=== PATIENT | female | born 1960 | race Caucasian/White ===

== ENCOUNTER 2016-12-20 09:51 | Inpatient (IN) | payer OTHER ==
[2016-12-20] VITALS (14 sets, daily range): BP systolic 127–180; BP diastolic 68–112
[~2016-12-20] VITALS: Ht 165.1 cm; Wt 63.4 kg
[2016-12-20 10:45] LABS: BASOPHIL COUNT 0.1 K/uL (0-0.1); EOSINOPHIL (%) 2.8 % (0-5); EOSINOPHIL COUNT 0.6 K/uL (0-0.3); HEMATOCRIT 43.5 % (36.0-46.0); IMMATURE GRANULOCYTE (%) 0.7 % (0.0-0.7); IMMATURE GRANULOCYTE COUNT 0.1 K/uL; INSTRUMENT ABS NEUTROPHIL CT 13.8 K/uL; MCV 88.1 FL (83-99); MEAN PLAT.VOLUME 10.6 uM^3 (9.5-12.4); MONOCYTE (%) 3.5 % (3-12); MONOCYTE COUNT 0.7 K/uL (0-0.8); NEUTROPHIL (%) 71.4 % (45-76); NEUTROPHIL COUNT 13.8 K/uL (1.8-6.4); PLATELET COUNT 212 K/uL (156-360); RBC DIS.WIDTH-CV 12.7 % (11.8-14.6); RBC DIS.WIDTH-SD 41.1 % (39-53); RED BLOOD COUNT 4.94 M/uL (3.80-5.20); WHITE BLOOD COUNT 19.3 K/uL (4.1-10.2)
[2016-12-20 10:52] LABS: AMYLASE 64 IU/L (1-118); INTER. NORMALIZED RATIO 0.9; PROTHROMBIN TIME 10.2 SEC (10.2-12.9)
[2016-12-20 10:53] LABS: CHLORIDE 104 mEq/L (99-109); POTASSIUM 2.7 mEq/L (3.7-5.4); SODIUM 140 mEq/L (136-147)
[2016-12-20 10:54] LABS: GLUCOSE 189 mg/dL (70-99)
[2016-12-20 10:55] LABS: PTT 26.2 SEC (25-37)
[2016-12-20 10:56] LABS: ANION GAP 10 MEQ/L (2-14)
[2016-12-20 10:57] LABS: SERUM ETHYL ALCOHOL < 10 mg/dL
[2016-12-20 10:58] LABS: GFR ESTIMATE (CALCULATED) > 59 mL/min/
[2016-12-20 10:59] LABS: UREA NITROGEN (BUN) 15 mg/dL (9-23)
[2016-12-20 11:01] LABS: LIPASE 17 U/L (1.0-51.0)
[2016-12-20 11:04] LABS: TROP-I INTERPRETATION NEGATIVE; TROPONIN-I 0.17 ng/mL (0.0-0.30)
[2016-12-20 11:07] LABS: QUANTITATIVE HCG 9.8 MIU/ML
[2016-12-20 11:39] LABS: ADD MIUA? YES; BILIRUBIN NEGATIVE; BLOOD LARGE; COLOR STRAW ((YELLOW)); GLUCOSE (STRIP) 150; KETONES 5; LEUKOCYTES NEGATIVE; NITRITE NEGATIVE; PROTEIN (STRIP) 100; UROBILINOGEN 0.2 MG/DL (0.2-1.0)
[2016-12-20 12:06] LABS: AMPHETAMINE NEGATIVE (500 ng/mL); BARBITURATES NEGATIVE (200 ng/mL); BENZODIAZEPINES NEGATIVE (150 ng/mL); COCAINE NEGATIVE (150 ng/mL); INTERNAL CONTROLS VALID? YES; METHADONE PRESUMPTIVE POSITIVE (200 ng/mL); METHAMPHETAMINE NEGATIVE (500 ng/mL); OPIATES (MORPHINE) NEGATIVE (100 ng/mL); OXYCODONE NEGATIVE (100 ng/mL); PHENCYCLIDINE NEGATIVE (25 ng/mL); PROPOXYPHENE NEGATIVE (300 ng/mL); THC CANNABINOIDS NEGATIVE (50 ng/mL); TRICYCLIC ANTIDEPRESSANTS NEGATIVE (300 ng/mL)
[2016-12-20 12:22] LABS: BACTERIA NONE SEEN /HPF; EPITHELIAL CELLS NONE SEEN /HPF; MUCUS TRACE /LPF; RED BLOOD CELLS TNTC /HPF (0-5); UCUL ADDED? YES; WHITE BLOOD CELLS NONE SEEN /HPF (0-5)
[2016-12-20 16:04] LABS: BASE EXCESS 0.2 mEq/L (-3 to +3); BICARBONATE 23.6 mEq/L (22-26); METHEMOGLOBIN 1.7 % (0-1.5); PCO2 34 mm Hg (35-45); PO2 412 mm Hg (80-100); pH 7.45 (7.35-7.45)
[2016-12-20 16:08] LABS: COMMENTS - BLOOD GASES A+C+; SITE RR
[2016-12-20 16:09] LABS: DEVICE 840 PB; FI02 100 %; MECHANICAL RATE 14 resp/min; MODE AC; PEEP 5 CM/H20; TIDAL VOLUME 450 ML; TOTAL RESP RATE 25 resp/min
[2016-12-20 17:14] LABS: METH RESISTANT S AUREUS PCR NEGATIVE (NEGATIVE)
[2016-12-20 17:15] LABS: PROBE CHECK PASS; SPECIMEN PROCESSING CONTROL PASS
[2016-12-21 03:30] VITALS: BP 90/55
[2016-12-21 13:00] VITALS: BP 110/61
== END 2016-12-21 23:30 | DRG 64 ==
LOC: EME 09:51 → 4WEST 14:22 → EDOF 14:22 → 5EAST 14:22 → ENRESERV 14:24 → EDOF 14:33 → ENRESERV 14:39 → 4WEST 15:09 → ENRESERV 12-21 07:24 → CANRESERV 12-21 07:24 → ENRESERV 12-21 13:28 → 5EAST 12-21 15:26
PROVIDERS: Emergency Medicine; Internal Medicine Critical Care Medicine
PROC: 0BH17EZ Insertion of Endotracheal Airway into Trachea, Via Natural or Artificial Opening (ICD-10-PCS; principal; 2016-12-20)
PROC: 02HV33Z Insertion of Infusion Device into Superior Vena Cava, Percutaneous Approach (ICD-10-PCS; 2016-12-20)
PROC: 0W9930Z Drainage of Right Pleural Cavity with Drainage Device, Percutaneous Approach (ICD-10-PCS; 2016-12-20)
PROC: 5A1935Z Respiratory Ventilation, Less than 24 Consecutive Hours (ICD-10-PCS; 2016-12-20)
DX: I60.2 Nontraumatic subarachnoid hemorrhage from anterior communicating artery (principal); I62.00 Nontraumatic subdural hemorrhage, unspecified; I16.1 Hypertensive emergency; J96.00 Acute respiratory failure, unspecified whether with hypoxia or hypercapnia; J95.811 Postprocedural pneumothorax; Z51.5 Encounter for palliative care; Z66 Do not resuscitate; R40.20 Unspecified coma; R47.81 Slurred speech; I10 Essential (primary) hypertension; G43.909 Migraine, unspecified, not intractable, without status migrainosus
CPT/HCPCS: 36600; 70450; 71010; 80048; 80053; 81003; 82150; 82803; 83690; 83735; 84100; 84484; 84702; 85025; 85025 91; 85610; 85730; 86850; 86900; 86901; 87070; 87086; 87205; 87641; 90832; 93005; 94002; 99281; 99285; C1751; G0480; J0330; J1953; J2270; J2704; J3010; J7030; J7050